=== PATIENT | male | born 1940 | race Caucasian/White ===

== ENCOUNTER 2016-09-18 22:26 | Emergency (ER) | payer MEDICARE, OTHER ==
[~2016-09-18 22:26] MED LIST: RANI150T6 PO; VALS320T2 PO
[2016-09-18 23:36] LABS: BACTERIA,URINE 0 /HPF (0-FEW); BILIRUBIN,URINE NEG (NEG); CLARITY,URINE CLEAR; COLOR,URINE YELLOW; GLUCOSE,URINE NEG (NEG); NITRITE,URINE NEG (NEG); RBC,URINE OCC /HPF (0-2); SQUAMOUS EPITHELIAL CELL,UR FEW /LPF; UROBILINOGEN,URINE 0.2 mg/dL (0.2 mg/dL); WBC,URINE OCC /HPF (0-4)
[2016-09-19 00:15] VITALS: BP 120/64
[2016-09-19] MEDS ORDERED: TAMS0.4C2 PO (00:20)
--- NOTE | 2016-09-19 00:20 | PHYS DOC ---
Past History Past Medical History: GERD, Other Past Surgical History: Other Alcohol Use: Occasionally Drug Use: None Adult General Chief Complaint Chief Complaint: URINARY FREQUENCY HPI HPI Patient is a 76 year old male who presents with complaint of increased urinary frequency. Patient states that his symptoms started today. Patient states that he had been constipated and took a laxative which help move his bowels earlier today. Patient states since doing this he has had increased urge to urinate. Patient states that he only urinates a small amount of urine which he equates to us and a teaspoon each time he attempts to urinate. Patient denies any dysuria and denies any pelvic pain or bloating. Patient states that he was told in the past he had an enlarged prostate but has not been on any medications for urinary problems. Patient has no fever and denies any hematuria. Review of Systems Review of Systems Constitutional: Denies fever or chills [] Eyes: Denies change in visual acuity, redness, or eye pain [] HENT: Denies nasal congestion or sore throat [] Respiratory: Denies cough or shortness of breath [] Cardiovascular: No additional information not addressed in HPI [] GI: Denies abdominal pain, nausea, vomiting, bloody stools or diarrhea [] : Increased urinary frequency, denies dysuria or hematuria [] Musculoskeletal: Denies back pain or joint pain [] Integument: Denies rash or skin lesions [] Neurologic: Denies headache, focal weakness or sensory changes [] Allergies Allergies Allergies Coded Allergies Type Severity Reaction Last Updated Verified No Known Drug Allergies 05/15/15 No Physical Exam Physical Exam Constitutional: Well developed, well nourished, no acute distress, non-toxic appearance. [] HENT: Normocephalic, atraumatic, bilateral external ears normal, oropharynx moist, no oral exudates, nose normal. [] Eyes: PERRLA, EOMI, conjunctiva normal, no discharge. [] Neck: Normal range of motion, no tenderness, supple, no stridor. [] Cardiovascular:Heart rate regular rhythm, no murmur [] Lungs & Thorax: Bilateral breath sounds clear to auscultation [] Abdomen: Bowel sounds normal, soft, no tenderness, no masses, no pulsatile masses. [] Skin: Warm, dry, no erythema, no rash. [] Back: No tenderness, no CVA tenderness. [] Extremities: No tenderness, no cyanosis, no clubbing, ROM intact, no edema. [] Neurologic: Alert and oriented X 3, normal motor function, normal sensory function, no focal deficits noted. [] Current Patient Data Lab Results Laboratory Tests Test 09/18/16 22:41 Urine Collection Type Unknown Urine Color Yellow Urine Clarity Clear Urine pH 6.0 Urine Specific [place] 1.015 Urine Protein Neg (NEG-TRACE) Urine Glucose (UA) Neg mg/dL (NEG) Urine Ketones (Stick) Neg mg/dL (NEG) Urine Blood Trace (NEG) Urine Nitrite Neg (NEG) Urine Bilirubin Neg (NEG) Urine Urobilinogen Dipstick 0.2 mg/dL (0.2 mg/dL) Urine Leukocyte Esterase Neg (NEG) Urine RBC Occ /HPF (0-2) Urine WBC Occ /HPF (0-4) Urine Squamous Epithelial Cells Few /LPF Urine Bacteria 0 /HPF (0-FEW) EKG EKG Not performed [] Radiology/Procedures Radiology/Procedures Not performed [] Course & Med Decision Making Course & Med Decision Making Pertinent Labs and Imaging studies reviewed. (See chart for details) Patient's UA shows no evidence of significant hematuria or infection. Spoke with patient regarding treatment options including obtaining a postvoid residual by urinary catheterization. Patient states that he did not want this procedure performed. I suspect due to patient's symptoms that they may be due to partial obstruction from enlarged prostate. I stated that we could start the patient on empiric therapy with Flomax. Patient states he is not in any significant distress at this time and he would prefer to take oral medication over the next couple days to see if this helps improve his symptoms. I recommended that he follow-up with his primary doctor in the next 3 days which he agreed. Advised return emergency department for any worsening symptoms. Patient voiced understanding and in agreement with treatment plan. Dragon Disclaimer Dragon Disclaimer This chart was dictated in whole or in part using Voice Recognition software in a busy, high-work load, and often noisy Emergency Department environment. It may contain unintended and wholly unrecognized errors or omissions. Departure Departure: Impression: Primary Impression: Urinary frequency Disposition: HOME, SELF-CARE Condition: STABLE Referrals: SETH TATE (PCP) Patient Instructions: Urinary Frequency Additional Instructions: Follow-up with your primary doctor in 3 days for reevaluation. Return to the emergency department for any severe or worsening symptoms. Scripts Tamsulosin Hcl (TAMSULOSIN HCL) 0.4 Mg Cap.er.24h 1 CAP PO DAILY, #30 CAP 0 Refills Prov: JOSHUA MONDRAGON MD 09/19/16 JOSHUA MONDRAGON MD Sep 19, 2016 00:20
[2016-09-19] MEDS ORDERED: TAMSULOSIN 0.4 MG CAP.ER.24H. PO ONE (00:30)
== END 2016-09-19 00:25 | disposition home or self-care (01) ==
LOC: ER 22:26
DX: R35.0 Frequency of micturition (principal); K21.9 Gastro-esophageal reflux disease without esophagitis
CPT/HCPCS: 81001; 99283

== ENCOUNTER 2016-09-19 21:28 | Emergency (ER) | payer MEDICARE, OTHER ==
[~2016-09-19] VITALS: Ht 188 cm; Wt 100.1 kg
[~2016-09-19 21:28] MED LIST changes: +TAMS0.4C2 PO
[2016-09-19] MEDS ORDERED: IV NORMAL SALINE 1,000ML 1,000 ML IV ONE (22:00)
[2016-09-19] MEDS ORDERED: diazePAM 5 MG TABLET PO ONE (22:15)
[2016-09-19] MEDS ORDERED: KETOROLAC 15 MG/ML VIAL. IV ONE (22:15)
--- NOTE | 2016-09-19 22:31 | RAD ---
PQRS STATEMENT: One or more of the following in the visualized dose reduction techniques were utilized for this study: 1. Automatic exposure control, 2. Adjustment of the mA and/or kV according to patient size, 3. Use of iterative reconstruction technique CT ABDOMEN/PELVIS Indication:RT FLANK PAIN, HX ESOPHOGEAL CANCER, SURGERY DONE TO ESOPHAGUS Technique: Multiple contiguous axial images were obtained through the abdomen and pelvis. Coronal and sagittal reformations were created. Comparison: 11/03/2011 CT abdomen and pelvis Findings: There is bilateral hydroureteronephrosis. There is a moderately enlarged right renal pelvis. This is seen to a lesser degree on the left. There is no nephrolithiasis or ureteral calculus. The urinary bladder is distended. Perinephric stranding is noted bilaterally. Heart size normal. Coronary artery calcified calcifications are noted. There is a hiatal hernia. A small right pleural effusion is noted. There is atelectasis or scarring in the right lower lobe.Evaluation of the abdominal viscera is limited in the absence of IV contrast. The liver and spleen are normal in size. The gallbladder is nondistended. The pancreas and adrenal glands are unremarkable. There is no abdominopelvic ascites. Abdominal aorta is normal in caliber. .The bowel loops are normal in caliber. The appendix is normal.No destructive osseus lesions are identified. There is ectasia of the bilateral common iliac arteries measuring 2.1 cm on the left and 1.7 cm on the right. Impression: There is bilateral hydronephrosis and hydroureter. This may be due to reflux from the distended urinary bladder. There is no evidence for obstructing calculus. Coronary artery disease. Hiatal hernia. Small right pleural effusion. Ectasia of the bilateral iliac arteries. Electronically signed by: Tee Kan MD (09/19/2016 10:28 PM) [facility]
--- NOTE | 2016-09-19 22:50 | PHYS DOC ---
Past History Past Medical History: Pneumonia, Stroke Past Surgical History: Other Alcohol Use: None Drug Use: None Adult General Chief Complaint Chief Complaint: FLANK PAIN HPI HPI Patient is a 76-year-old male presenting to the emergency department for evaluation of continued lower abdominal pressure and now he has right flank pain. Today for not being able to urinate very well and was prescribed Flomax and he said he is urinating better today. Patient denies any fevers chills nausea vomiting or other systemic symptoms. He says that he is was been told that he has a large prostate but has never required a catheter in the past. Review of Systems Review of Systems Constitutional: Denies fever or chills [] Respiratory: Denies cough or shortness of breath [] Cardiovascular: No additional information not addressed in HPI [] GI: Denies abdominal pain, nausea, vomiting, bloody stools or diarrhea [] : Denies dysuria or hematuria [] Musculoskeletal: + R flank back pain. No joint pain [] Neurologic: Denies headache, focal weakness or sensory changes [] Current Medications Current Medications Current Medications Medications (Trade) Dose Ordered Sig/Theo Start Time Stop Time Status Last Admin Dose Admin Diazepam (Valium) 5 mg 1X ONCE 09/19/16 22:15 09/19/16 22:16 DC 09/19/16 22:45 5 MG Fentanyl Citrate (Fentanyl 2ml Vial) 50 mcg 1X ONCE 09/19/16 23:00 09/19/16 23:01 Ketorolac Tromethamine (Toradol) 15 mg 1X ONCE 09/19/16 22:15 09/19/16 22:16 DC 09/19/16 22:45 15 MG Sodium Chloride 1,000 ml @ 1,000 mls/hr 1X ONCE 09/19/16 22:00 09/19/16 22:59 09/19/16 22:45 1,000 MLS/HR Allergies Allergies Allergies Coded Allergies Type Severity Reaction Last Updated Verified No Known Drug Allergies 05/15/15 No Physical Exam Physical Exam Constitutional: Well developed, well nourished, no acute distress, non-toxic appearance. [] HENT: Normocephalic, atraumatic, bilateral external ears normal, oropharynx moist, no oral exudates, nose normal. [] Eyes: PERRLA, EOMI, conjunctiva normal, no discharge. [] Neck: Normal range of motion, no tenderness, supple, no stridor. [] Cardiovascular:Heart rate regular rhythm, no murmur [] Lungs & Thorax: Bilateral breath sounds clear to auscultation [] Abdomen: Bowel sounds normal, soft, no tenderness, no masses, no pulsatile masses. [] Skin: Warm, dry, no erythema, no rash. [] Back: No tenderness, no CVA tenderness. [] Extremities: No tenderness, no cyanosis, no clubbing, ROM intact, no edema. [] Neurologic: Alert and oriented X 3, normal motor function, normal sensory function, no focal deficits noted. [] Psychologic: Affect normal, judgement normal, mood normal. [] Current Patient Data Vital Signs Vital Signs Date Time Temp Pulse Resp B/P (MAP) Pulse Ox O2 Delivery O2 Flow Rate FiO2 09/19/16 21:40 97.8 88 20 99 Room Air EKG EKG [] Radiology/Procedures Radiology/Procedures PQRS STATEMENT: One or more of the following in the visualized dose reduction techniques were utilized for this study: 1. Automatic exposure control, 2. Adjustment of the mA and/or kV according to patient size, 3. Use of iterative reconstruction technique CT ABDOMEN/PELVIS Indication:RT FLANK PAIN, HX ESOPHOGEAL CANCER, SURGERY DONE TO ESOPHAGUS Technique: Multiple contiguous axial images were obtained through the abdomen and pelvis. Coronal and sagittal reformations were created. Comparison: 11/03/2011 CT abdomen and pelvis Findings: There is bilateral hydroureteronephrosis. There is a moderately enlarged right renal pelvis. This is seen to a lesser degree on the left. There is no nephrolithiasis or ureteral calculus. The urinary bladder is distended. Perinephric stranding is noted bilaterally. Heart size normal. Coronary artery calcified calcifications are noted. There is a hiatal hernia. A small right pleural effusion is noted. There is atelectasis or scarring in the right lower lobe.Evaluation of the abdominal viscera is limited in the absence of IV contrast. The liver and spleen are normal in size. The gallbladder is nondistended. The pancreas and adrenal glands are unremarkable. There is no abdominopelvic ascites. Abdominal aorta is normal in caliber. .The bowel loops are normal in caliber. The appendix is normal.No destructive osseus lesions are identified. There is ectasia of the bilateral common iliac arteries measuring 2.1 cm on the left and 1.7 cm on the right. Impression: There is bilateral hydronephrosis and hydroureter. This may be due to reflux from the distended urinary bladder. There is no evidence for obstructing calculus. Coronary artery disease. Hiatal hernia. Small right pleural effusion. Ectasia of the bilateral iliac arteries. Electronically signed by: Tee Kan MD (09/19/2016 10:28 PM) [facility] DICTATED AND SIGNED BY: TEE KAN MD DATE: 09/19/16 Course & Med Decision Making Course & Med Decision Making Patient has a very distended bladder in addition to bilateral hydronephrosis. He has obstructive uropathy and now has an elevated creatinine. Patient was explained the need for a Gonsalez catheter and he agreed. Patient will be started on antibiotics and told to continue his Flomax and follow with urologist in the next 2-3 days and come back to the ER sooner with any worsening pain fevers vomiting or other general concerns. Dragon Disclaimer Dragon Disclaimer This chart was dictated in whole or in part using Voice Recognition software in a busy, high-work load, and often noisy Emergency Department environment. It may contain unintended and wholly unrecognized errors or omissions. Departure Departure: Impression: Primary Impression: Uropathy, obstructive Additional Impressions: Hydronephrosis Renal insufficiency Disposition: 01 HOME, SELF-CARE Condition: GOOD Referrals: PAULA WALTERS MD Patient Instructions: Gonsalez Catheter Care, Adult Additional Instructions: DRINK PLENTY OF FLUIDS AND FOLLOW WITH THE UROLOGIST IN THE NEXT 2-3 DAYS. COME BACK TO THE ED SOONER WITH ANY NEW OR WORSENING SYMPTOMS. THANK YOU! Problem Qualifiers JULIETA CALVIN DO Sep 19, 2016 22:50
[2016-09-19 22:59] LABS: BASO % 1 % (0-3); EOS % 0 % (0-3); HEMATOCRIT 43.1 % (39.0-53.0); HEMOGLOBIN 14.7 g/dL (13.0-17.5); LYMPH # 0.4 x10^3/uL (1.0-4.8); LYMPH % 5 % (24-48); MEAN CORPUSCULAR HEMOGLOBIN 32 pg (25-35); MEAN CORPUSCULAR HGB CONC 34 g/dL (31-37); MEAN CORPUSCULAR VOLUME 95 fL (79-100); MONO # 0.6 x10^3/uL (0.0-1.1); MONO % 9 % (0-9); NEUT % 85 % (31-73); PLATELET COUNT 179 x10^3/uL (140-400); RED BLOOD COUNT 4.54 x10^6/uL (4.30-5.70); RED CELL DISTRIBUTION WIDTH 14.2 % (11.5-14.5); WHITE BLOOD COUNT 7.1 x10^3/uL (4.0-11.0)
[2016-09-19] MEDS ORDERED: fentaNYL PF 100 MCG/2 ML VIAL IV ONE (23:00)
[2016-09-19 23:10] LABS: ALBUMIN 3.7 g/dL (3.4-5.0); ALBUMIN/GLOBULIN RATIO 0.9 (1.0-1.7); CALCIUM 9.1 mg/dL (8.5-10.1); CREATININE 1.4 mg/dL (0.7-1.3); GFR 49.1; MAGNESIUM 2.2 mg/dL (1.8-2.4); POTASSIUM 3.6 mmol/L (3.5-5.1); TOTAL BILIRUBIN 1.4 mg/dL (0.2-1.0); TOTAL PROTEIN 7.7 g/dL (6.4-8.2)
[2016-09-19 23:21] LABS: BACTERIA,URINE 0 /HPF (0-FEW); BILIRUBIN,URINE NEG (NEG); CLARITY,URINE HAZY; COLOR,URINE YELLOW; GLUCOSE,URINE NEG (NEG); NITRITE,URINE NEG (NEG); SQUAMOUS EPITHELIAL CELL,UR FEW /LPF; UROBILINOGEN,URINE 0.2 mg/dL (0.2 mg/dL)
[2016-09-19] MEDS ORDERED: LIDOCAINE 2% TOPICAL JELLY 30GM TUBE. TP ONE (23:33)
[2016-09-20] MEDS ORDERED: IV NORMAL SALINE 50ML 50 ML ONE (00:04)
[2016-09-20] MEDS ORDERED: cefTRIAXone SODIUM 1 GM VIAL IV ONE (00:04)
[2016-09-20 00:15] VITALS: BP 148/82
[2016-09-20] MEDS ORDERED: LIDOCAINE 2% TOPICAL JELLY 30GM TUBE. TP ONE (04:00)
== END 2016-09-20 00:28 | disposition home or self-care (01) ==
LOC: ER 21:28
DX: N13.9 Obstructive and reflux uropathy, unspecified (principal); N13.30 Unspecified hydronephrosis; N28.9 Disorder of kidney and ureter, unspecified; Z86.73 Personal history of transient ischemic attack (TIA), and cerebral infarction without residual deficits
CPT/HCPCS: 36415; 51702; 74176; 80053; 81001; 82550; 83690; 83735; 85027; 85610; 85730; 96361; 96365; 96375; 99285; J0696; J1885; J7030

== ENCOUNTER 2016-09-22 15:01 | Emergency (ER) | payer MEDICARE, OTHER ==
[~2016-09-22] VITALS: Ht 193 cm; Wt 77.6 kg
--- NOTE | 2016-09-22 16:06 | PHYS DOC ---
Past History Past Medical History: Pneumonia, Stroke Past Surgical History: Other Alcohol Use: None Drug Use: None Adult General Chief Complaint Chief Complaint: URINE CATHETER PROBLEM HPI HPI Patient is a 76 year old male who presents his Gonsalez catheter removed. The patient was seen twice earlier this week in the emergency department after complaining of urinary frequency. The patient was suspected of urinary retention at his first visit but elected to be treated with Flomax therapy. Patient returned to the emergency department the next day due to worsening symptoms and was diagnosed with urinary retention. Patient had a Gonsalez catheter placed while in the emergency department and was referred to urology for follow- up. Patient states that he is unable to be seen by urology until the end of this month. Patient would like to have his Gonsalez catheter removed at this time. Patient denies any severe pain symptoms, fevers, nausea, or vomiting. Review of Systems Review of Systems Constitutional: Denies fever or chills [] Eyes: Denies change in visual acuity, redness, or eye pain [] HENT: Denies nasal congestion or sore throat [] Respiratory: Denies cough or shortness of breath [] Cardiovascular: Denies chest pain or edema [] GI: Denies abdominal pain, nausea, vomiting, bloody stools or diarrhea [] : Denies dysuria or hematuria [] Musculoskeletal: Denies back pain or joint pain [] Integument: Denies rash or skin lesions [] Neurologic: Denies headache, focal weakness or sensory changes [] Allergies Allergies Allergies Coded Allergies Type Severity Reaction Last Updated Verified No Known Drug Allergies 05/15/15 No Physical Exam Physical Exam Constitutional: Well developed, well nourished, no acute distress, non-toxic appearance. [] HENT: Normocephalic, atraumatic, bilateral external ears normal, oropharynx moist, no oral exudates, nose normal. [] Eyes: PERRLA, EOMI, conjunctiva normal, no discharge. [] Neck: Normal range of motion, no tenderness, supple, no stridor. [] Cardiovascular:Heart rate regular rhythm, no murmur [] Lungs & Thorax: Bilateral breath sounds clear to auscultation [] Abdomen: Bowel sounds normal, soft, no tenderness, no masses, no pulsatile masses. [] Skin: Warm, dry, no erythema, no rash. [] Back: No tenderness, no CVA tenderness. [] Extremities: No tenderness, no cyanosis, no clubbing, ROM intact, no edema. [] Neurologic: Alert and oriented X 3, normal motor function, normal sensory function, no focal deficits noted. [] Psychologic: Affect normal, judgement normal, mood normal. [] Current Patient Data Vital Signs Vital signs reviewed and are stable Lab Results None performed EKG EKG Not performed [] Radiology/Procedures Radiology/Procedures Not performed [] Course & Med Decision Making Course & Med Decision Making Pertinent Labs and Imaging studies reviewed. (See chart for details) Patient's Gonsalez catheter was removed in the emergency department per his request. The patient is in no acute distress at this time. Advised patient to continue on Flomax therapy until seen by urology. Advised return emergency department for any worsening symptoms. Patient voiced understanding and in agreement with treatment plan. Dragon Disclaimer Dragon Disclaimer This chart was dictated in whole or in part using Voice Recognition software in a busy, high-work load, and often noisy Emergency Department environment. It may contain unintended and wholly unrecognized errors or omissions. Departure Departure: Impression: Primary Impression: Encounter for Gonsalez catheter removal Disposition: HOME, SELF-CARE Condition: IMPROVED Referrals: SETH TATE (PCP) Patient Instructions: Urinary Retention, Acute, Male Additional Instructions: Follow-up with your urologist at the next available appointment. Continue on Lotemax daily. Return to the emergency department for any worsening symptoms. JOSHUA MONDRAGON MD Sep 22, 2016 16:05
[2016-09-22 16:10] VITALS: BP 121/75
== END 2016-09-22 16:15 | disposition home or self-care (01) ==
LOC: ER 15:01
DX: Z46.89 Encounter for fitting and adjustment of other specified devices (principal); R35.0 Frequency of micturition; R33.9 Retention of urine, unspecified; Z86.73 Personal history of transient ischemic attack (TIA), and cerebral infarction without residual deficits
CPT/HCPCS: 99281

== ENCOUNTER 2016-09-23 10:36 | Emergency (ER) | payer MEDICARE, OTHER ==
[~2016-09-23] VITALS: Ht 193 cm; Wt 80.7 kg
[2016-09-23 10:38] VITALS: BP 151/99
--- NOTE | 2016-09-23 10:38 | ED.ADGEN ---
Past History Past Medical History: Pneumonia, Stroke Past Surgical History: Other Alcohol Use: None Drug Use: None Adult General Chief Complaint Chief Complaint Decreased urine output [facility] HPI Patient is a 76 year old male who presents with decreased urine output overnight with abdominal distention. He was in about 3 days ago and had a Gonsalez catheter placed secondary to urinary retention and then yesterday around 3 PM had her remove. He states he hasn't urinated since 3 PM last night. He presents this morning with suprapubic discomfort. Gonsalez catheter was placed in greater than 500 ML's of urine was obtained. Urine was clear there was no discoloration. He states he only urinates about 300 mL every 3 hours and has done this for about the last 20 years. He states he's had an enlarged prostate before. He denies any different medications, fevers chills nausea or vomiting and doesn't know why all of a sudden he had urinary retention. He states he called several different urologist and has an appointment in [facility] on October 08. Currently after the Gonsalez catheter was placed he denies any abdominal pain and states he feels back to normal. Review of Systems Review of Systems Constitutional: Denies fever or chills [] Eyes: Denies change in visual acuity, redness, or eye pain [] HENT: Denies nasal congestion or sore throat [] Respiratory: Denies cough or shortness of breath [] Cardiovascular: No additional information not addressed in [facility] [] GI: Denies abdominal pain, nausea, vomiting, bloody stools or diarrhea [] : Denies dysuria or hematuria [] Musculoskeletal: Denies back pain or joint pain [] Integument: Denies rash or skin lesions [] Neurologic: Denies headache, focal weakness or sensory changes [] Endocrine: Denies polyuria or polydipsia [] Allergies Allergies Allergies Coded Allergies Type Severity Reaction Last Updated Verified No Known Drug Allergies 05/15/15 No Physical Exam Physical Exam Constitutional: Well developed, well nourished, no acute distress, non-toxic appearance. [] HENT: Normocephalic, atraumatic, bilateral external ears normal, oropharynx moist, no oral exudates, nose normal. [] Eyes: PERRLA, EOMI, conjunctiva normal, no discharge. [] Neck: Normal range of motion, no tenderness, supple, no stridor. [] Cardiovascular:Heart rate regular rhythm, no murmur [] Lungs & Thorax: Bilateral breath sounds clear to auscultation [] Abdomen: Bowel sounds normal, soft, no tenderness, no masses, no pulsatile masses. [] Skin: Warm, dry, no erythema, no rash. [] Back: No tenderness, no CVA tenderness. [] Extremities: No tenderness, no cyanosis, no clubbing, ROM intact, no edema. [] Neurologic: Alert and oriented X 3, normal motor function, normal sensory function, no focal deficits noted. [] Psychologic: Affect normal, judgement normal, mood normal. [] Current Patient Data Vital Signs Vital Signs Date Time Temp Pulse Resp B/P (MAP) Pulse Ox O2 Delivery O2 Flow Rate FiO2 09/23/16 10:38 97.7 110 22 99 Room Air EKG EKG [] Radiology/Procedures Radiology/Procedures [] Course & Med Decision Making Course & Med Decision Making Pertinent Labs and Imaging studies reviewed. (See chart for details) Labs were just completed the other day so do not feel there is need to repeat labs today since his symptoms just occurred overnight and after the Gonsalez catheter was placed all the symptoms resolved. He has a urologist follow-up appointment scheduled. He was discharged with a leg bag. He was also given a CD of his CT abdomen and pelvis was completed 3 days ago. Return precautions given he and his 's agreeable to the plan and being discharged in stable condition at this time. Final Impression Final Impression Urinary retention Problems: Dragon Disclaimer Dragon Disclaimer This electronic medical record was generated, in whole or in part, using a voice recognition dictation system. GATITO LUGO MD Sep 23, 2016 10:38
== END 2016-09-23 11:33 | disposition home or self-care (01) ==
LOC: ER 10:36
DX: R33.9 Retention of urine, unspecified (principal); Z86.73 Personal history of transient ischemic attack (TIA), and cerebral infarction without residual deficits
CPT/HCPCS: 51702; 99284-25

== ENCOUNTER 2016-09-29 17:19 | Emergency (ER) | payer MEDICARE, OTHER ==
[~2016-09-29] VITALS: Ht 193 cm; Wt 80.7 kg
[2016-09-29 17:51] VITALS: BP 121/49
[2016-09-29] MEDS ORDERED: LIDOCAINE 2% JELLY 10ML IN APPLICATOR. MM ONE (18:00)
--- NOTE | 2016-09-29 18:07 | PHYS DOC ---
Past History Past Medical History: Pneumonia, Stroke Additional Past Medical Histor: Urinary retention Past Surgical History: Other Alcohol Use: None Drug Use: None Social History Narrative: Adult General Chief Complaint Chief Complaint: URINARY RETENTION HPI HPI Patient is a 76year old male who presents with urinary retention. He was originally seen in the emergency department on September 23 for urinary retention and had a catheter placed. He saw his urologist today and had the Gonsalez catheter removed. He subsequently has not been able to urinate for at least 7 hours. He states he started to develop some suprapubic abdominal pain. He did take an antibiotic and finished 3 days ago. No blood in his urine. He denies fever. No nausea vomiting. No other complaints. Review of Systems Review of Systems Constitutional: Denies fever or chills GI: suprapubic abdominal pain, Denies nausea, vomiting, bloody stools or diarrhea : See HPI. Denies dysuria or hematuria Current Medications Current Medications Current Medications Medications (Trade) Dose Ordered Sig/Theo Start Time Stop Time Status Last Admin Dose Admin Lidocaine HCl (Uro-Jet) 1 eri 1X ONCE 09/29/16 18:00 09/29/16 18:01 DC Allergies Allergies Allergies Coded Allergies Type Severity Reaction Last Updated Verified No Known Drug Allergies 05/15/15 No Physical Exam Physical Exam Constitutional: Well developed, well nourished, no acute distress, non-toxic appearance. HENT: Normocephalic, atraumatic, bilateral external ears normal, oropharynx moist, no oral exudates, nose normal. Eyes: PERRLA, EOMI, conjunctiva normal, no discharge. Neck: Normal range of motion, no tenderness, supple, no stridor. Cardiovascular:Heart rate regular rhythm, no murmur Lungs & Thorax: Bilateral breath sounds clear to auscultation Abdomen: Bowel sounds normal, soft, some suprapubic tenderness, no masses, no pulsatile masses. : no blood at the meatus. No testicular pain or swelling. Skin: Warm, dry, no erythema, no rash. Back: No tenderness, no CVA tenderness. Extremities: No tenderness, no cyanosis, no clubbing, ROM intact, no edema. Neurologic: Alert and oriented X 3, normal motor function, normal sensory function, no focal deficits noted. Current Patient Data Vital Signs sat 99%; T 98.1; BP 121/49; P 88 Lab Results Istat results: Na 137; K 4.0; Cl; 99; CO2 28; BUN 27; Cr 1.1; Glucose 102; H/H= 12.9/38 Course & Med Decision Making Course & Med Decision Making Pertinent Labs and Imaging studies reviewed. (See chart for details) renal function normal. Urine sent and pending. Placed on Macrobid. Home with leg bag. 175 cc out but patient insistent on having another catheter for the weekend. Dragon Disclaimer Dragon Disclaimer This chart was dictated in whole or in part using Voice Recognition software in a busy, high-work load, and often noisy Emergency Department environment. It may contain unintended and wholly unrecognized errors or omissions. Departure Departure: Impression: Primary Impression: Urinary retention Disposition: HOME, SELF-CARE Condition: GOOD Referrals: SETH TATE (PCP) Patient Instructions: Gonsalez Catheter Care, Adult, Urinary Retention, Acute, Male Additional Instructions: A urinalysis was sent for evaluation and possible culture. Follow up with your urologist again on the retention and the urine culture. Scripts Nitrofurantoin Monohyd/M-Cryst (MACROBID 100 MG CAPSULE) 100 Mg Capsule 1 CAP PO BID, #10 CAP Prov: NAKUL BRIGGS MD 09/29/16 NAKUL BRIGGS MD Sep 29, 2016 18:07
[2016-09-29] MEDS ORDERED: NITR100C62 PO (18:08)
[2016-09-29 18:32] LABS: HEMOGLOBIN ISTAT 12.9 gm/dL
[2016-09-29 18:54] LABS: BACTERIA,URINE 0 /HPF (0-FEW); BILIRUBIN,URINE NEG (NEG); CLARITY,URINE CLEAR; COLOR,URINE YELLOW; GLUCOSE,URINE NEG (NEG); NITRITE,URINE NEG (NEG); SQUAMOUS EPITHELIAL CELL,UR FEW /LPF; UROBILINOGEN,URINE 0.2 mg/dL (0.2 mg/dL)
[2016-09-29 18:57] LABS: HYALINE CASTS, URINE FEW /HPF
== END 2016-09-29 18:37 | disposition home or self-care (01) ==
LOC: ER 17:19
DX: R33.9 Retention of urine, unspecified (principal); R10.30 Lower abdominal pain, unspecified; Z86.73 Personal history of transient ischemic attack (TIA), and cerebral infarction without residual deficits
CPT/HCPCS: 51702; 80047; 81001; P9612; 99284-25

== ENCOUNTER 2016-10-26 01:32 | Emergency (ER) | payer MEDICARE, OTHER ==
[~2016-10-26] VITALS: Ht 193 cm; Wt 80.7 kg
[2016-10-26 01:32] VITALS: BP 147/89
[~2016-10-26 01:32] MED LIST changes: +NITR100C62 PO
--- NOTE | 2016-10-26 02:15 | PHYS DOC ---
Past History Past Medical History: Pneumonia, Stroke Additional Past Medical Histor: Urinary retention Past Surgical History: Other Alcohol Use: Rarely Drug Use: None Adult General Chief Complaint Chief Complaint: URINARY RETENTION HPI HPI Patient is a 76-year-old gentleman who presents here today with symptoms consistent with urinary retention. Patient reports he had a procedure today related laser ablation of his prostate. Patient was urinating well postop and sono Gonsalez catheter was sent home with him. Patient reports that he was warned that the swelling might cause urinary retention. This evening he reports he started having dribbling so he came to the ER secondary to hemorrhoids and this was most likely consistent with urinary retention. Patient has no other symptoms at this time. Patient's physical exam is significant for tenderness to palpation in the suprapubic region. After Gonsalez catheter placement patient was a sudden dramatic. Procedure: Gonsalez catheter was inserted by nurse. Patient reports incident relief after insertion of the catheter. Approximately 250 mL was obtained after insertion. Assessment and plan 76-year-old gentleman with urinary retention most likely secondary to edema postop. Gonsalez catheter has been placed and patient is to follow-up with his urologist on Sunday as scheduled. Review of Systems Review of Systems Constitutional: Denies fever or chills [] Eyes: Denies change in visual acuity, redness, or eye pain [] HENT: Denies nasal congestion or sore throat [] All other review systems are negative except as documented in the history of present illness. Allergies Allergies Allergies Coded Allergies Type Severity Reaction Last Updated Verified No Known Drug Allergies 05/15/15 No Physical Exam Physical Exam Constitutional: Well developed, well nourished, no acute distress, non-toxic appearance. HENT: Normocephalic, atraumatic, Eyes: no discharge. Neck: no stridor. Cardiovascular:Heart rate regular rhythm Lungs & Thorax: Bilateral breath sounds clear to auscultation Abdomen: Bowel sounds normal, soft, no tenderness, Skin: Warm, dry, no erythema, no rash. Back: No tenderness, no CVA tenderness. Extremities: No tenderness, no cyanosis, Neurologic: Alert and oriented X 3, Psychologic: Affect normal Current Patient Data Vital Signs Vital Signs Date Time Temp Pulse Resp B/P (MAP) Pulse Ox O2 Delivery O2 Flow Rate FiO2 10/26/16 01:32 97.5 74 20 96 Room Air EKG EKG [] Radiology/Procedures Radiology/Procedures [] Course & Med Decision Making Course & Med Decision Making Pertinent Labs and Imaging studies reviewed. (See chart for details) [] Dragon Disclaimer Dragon Disclaimer This chart was dictated in whole or in part using Voice Recognition software in a busy, high-work load, and often noisy Emergency Department environment. It may contain unintended and wholly unrecognized errors or omissions. Departure Departure: Impression: Primary Impression: Urinary retention Disposition: 01 HOME, SELF-CARE Condition: STABLE Referrals: YASSINE THOMAS MD (PCP) Patient Instructions: Gonsalez Catheter Care, Adult Additional Instructions: Please follow up as scheduled with your urologist on Sunday SAAD WRIGHT MD Oct 26, 2016 02:15
== END 2016-10-26 02:20 | disposition home or self-care (01) ==
LOC: ER 01:32
DX: R33.9 Retention of urine, unspecified (principal); Z86.73 Personal history of transient ischemic attack (TIA), and cerebral infarction without residual deficits
CPT/HCPCS: 51702; 99284-25

== ENCOUNTER 2016-11-02 10:48 | Emergency (ER) | payer MEDICARE, OTHER ==
[~2016-11-02] VITALS: Ht 193 cm; Wt 80.7 kg
[2016-11-02 11:04] VITALS: BP 159/87
--- NOTE | 2016-11-02 11:32 | ED.ADGEN ---
Past History Past Medical History: Pneumonia, Stroke Additional Past Medical Histor: Urinary retention Past Surgical History: Other Alcohol Use: Rarely Drug Use: None Adult General HPI HPI Patient is a 76 year old man, history of esophageal cancer status post full treatment, and urinary retention which had a Gonsalez catheter placed on 26 October. Patient had catheter placed in the emergency department, patient had a prostate ablation performed and had voided after leaving the hospital previously was being seen at [facility] on the [address], but then experienced retention later that night. Patient states that the Gonsalez catheter isn't functioning without issue, he states that he saw his urologist, Dr. Duron, and was told to come to the emergency department for his catheter be removed for a voiding trial prior to being seen tomorrow morning in the urology office. Patient denies any abdominal pain, flank pain, pain with urination, nausea, vomiting, fevers, chills or other concerns. He is not taking any antibiotics currently, or any other medications on a daily basis. Review of Systems Review of Systems Constitutional: Denies fever or chills [] Eyes: Denies change in visual acuity, redness, or eye pain [] HENT: Denies nasal congestion or sore throat [] Respiratory: Denies cough or shortness of breath [] Cardiovascular: No additional information not addressed in HPI [] GI: Denies abdominal pain, nausea, vomiting, bloody stools or diarrhea [] : Denies dysuria or hematuria [] Gonsalez catheter in place. Musculoskeletal: Denies back pain or joint pain [] Integument: Denies rash or skin lesions [] Neurologic: Denies headache, focal weakness or sensory changes [] Endocrine: Denies polyuria or polydipsia [] Allergies Allergies Allergies Coded Allergies Type Severity Reaction Last Updated Verified No Known Drug Allergies 05/15/15 No Physical Exam Physical Exam Constitutional: Well developed, well nourished, no acute distress, non-toxic appearance. [] HENT: Normocephalic, atraumatic, bilateral external ears normal, oropharynx moist, no oral exudates, nose normal. [] Eyes: PERRLA, EOMI, conjunctiva normal, no discharge. [] Neck: Normal range of motion, no tenderness, supple, no stridor. [] Cardiovascular:Heart rate regular rhythm, no murmur, S1, S2, no rubs or gallops. [] Lungs & Thorax: Bilateral breath sounds clear to auscultation, no wheezing, rhonchi, rales. No chest or crepitus or tenderness. [] Abdomen: Bowel sounds normal, soft, no tenderness, no rebound, rigidity, no guarding, no masses, no pulsatile masses. [] Skin: Warm, dry, no erythema, no rash. [] Back: No tenderness, no CVA tenderness. [] Extremities: No tenderness, no cyanosis, no clubbing, ROM intact, no edema. Negative Homans sign. [] Neurologic: Alert and oriented X 3, normal motor function, normal sensory function, no focal deficits noted. [] Psychologic: Affect normal, judgement normal, mood normal. [] Current Patient Data Vital Signs Vital Signs Date Time Temp Pulse Resp B/P (MAP) Pulse Ox O2 Delivery O2 Flow Rate FiO2 11/02/16 11:04 97.6 95 20 98 Room Air EKG EKG Not indicated. [] Radiology/Procedures Radiology/Procedures Not indicated. [] Course & Med Decision Making Course & Med Decision Making Pertinent Labs and Imaging studies reviewed. (See chart for details) Patient states that he was told to follow-up in the ED, as it is about a [address] to his doctor's office. Discussed with patient removal the Gonsalez catheter in the ED, as he is having no symptoms at this time, to follow-up with his urologist tomorrow, and to return anytime the ED if concerning symptoms develop. Patient voiced understanding and agreement, states that he would prefer to go home now, will perform a voiding trial in his own home, return for concerning symptoms or difficulties as discussed. No indication for additional evaluation or testing at this time, patient had catheter removed without issue, was discharged home in stable condition with plan and precautions as stated. Final Impression Final Impression [] Problems: Dragon Disclaimer Dragon Disclaimer This electronic medical record was generated, in whole or in part, using a voice recognition dictation system. Departure: Impression: Primary Impression: Encounter for Gonsalez catheter removal Disposition: HOME, SELF-CARE Condition: IMPROVED YASHIRA JAMIL DO Nov 02, 2016 11:32
== END 2016-11-02 11:18 | disposition home or self-care (01) ==
LOC: ER 10:48
DX: Z46.6 Encounter for fitting and adjustment of urinary device (principal); Z86.73 Personal history of transient ischemic attack (TIA), and cerebral infarction without residual deficits
CPT/HCPCS: 99281

== ENCOUNTER 2016-12-03 21:13 | Emergency (ER) | payer MEDICARE, OTHER ==
[~2016-12-03] VITALS: Ht 193 cm; Wt 80.7 kg
[2016-12-03 21:39] LABS: BASO % 0 % (0-3); EOS % 0 % (0-3); HEMATOCRIT 41.3 % (39.0-53.0); HEMOGLOBIN 14.1 g/dL (13.0-17.5); LYMPH # 0.4 x10^3/uL (1.0-4.8); LYMPH % 7 % (24-48); MEAN CORPUSCULAR HEMOGLOBIN 33 pg (25-35); MEAN CORPUSCULAR HGB CONC 34 g/dL (31-37); MEAN CORPUSCULAR VOLUME 96 fL (79-100); MONO # 0.1 x10^3/uL (0.0-1.1); MONO % 1 % (0-9); NEUT # 5.8 x10^3uL (1.8-7.7); NEUT % 92 % (31-73); PLATELET COUNT 187 x10^3/uL (140-400); RED BLOOD COUNT 4.31 x10^6/uL (4.30-5.70); RED CELL DISTRIBUTION WIDTH 14.3 % (11.5-14.5); WHITE BLOOD COUNT 6.4 x10^3/uL (4.0-11.0)
[2016-12-03 21:58] LABS: ALBUMIN 3.4 g/dL (3.4-5.0); CALCIUM 8.9 mg/dL (8.5-10.1); CREATININE 1.9 mg/dL (0.7-1.3); DIRECT BILIRUBIN 0.4 mg/dL (0.0-0.2); GFR 34.5; POTASSIUM 4.4 mmol/L (3.5-5.1); TOTAL BILIRUBIN 1.4 mg/dL (0.2-1.0); TOTAL PROTEIN 7.4 g/dL (6.4-8.2)
--- NOTE | 2016-12-03 22:00 | RAD ---
CT HEAD WO CONTRAST dated 12/03/2016 9:39 PM Indication: Generalized weakness, tremors shaking. History of prior right-sided CVA. Comparison: No comparison is available. Technique: Contiguous axial imaging the head was performed from skull base to vertex. No contrast administered. One or more of the following individualized dose reduction techniques were utilized for this examination: 1. Automated exposure control 2. Adjustment of the mA and/or kV according to patient size 3. Use of iterative reconstruction technique Findings: Ventricles and sulci are mildly prominent for age. No midline shift or mass effect. Brain parenchyma is of normal attenuation. No hemorrhage or extra-axial collection. Posterior fossa and brainstem unremarkable. Visualized paranasal sinuses and mastoid air cells are clear. No apparent calvarial abnormality. IMPRESSION: 1. No evidence of acute intracranial hemorrhage or mass. 2. Mild atrophy for age. Electronically signed by: Agustín Mario MD (12/03/2016 9:56 PM) [facility]
[2016-12-03] MEDS ORDERED: IV NORMAL SALINE 500ML 1,000 ML ONE (22:23)
[2016-12-03] MEDS ORDERED: IV NORMAL SALINE 1,000ML 1,000 ML IV ONE (22:30)
[2016-12-03 22:57] LABS: BACTERIA,URINE FEW /HPF (0-FEW); BILIRUBIN,URINE NEG (NEG); CLARITY,URINE HAZY; COLOR,URINE YELLOW; GLUCOSE,URINE NEG (NEG); NITRITE,URINE POS (NEG); UROBILINOGEN,URINE 0.2 mg/dL (0.2 mg/dL); WBC,URINE TNTC /HPF (0-4)
[2016-12-03] MEDS ORDERED: CONTRAST GIVEN MC PRN (23:00)
[2016-12-03] MEDS ORDERED: IOHEXOL 300 MG/ML 75 ML VIAL. IV ONE (23:00)
[2016-12-04] MEDS ORDERED: IV NORMAL SALINE 500ML 500 ML IV ONE
[2016-12-04] MEDS ORDERED: 0.9 % SODIUM CHLORIDE 10 ML DISP.SYRIN. IV PRN (00:15)
[2016-12-04] MEDS ORDERED: PIP/TAZO PER PHARMACY MC PRN (00:15)
--- NOTE | 2016-12-04 00:27 | RAD ---
INDICATION: EPIGASTRIC PAIN, ELEVATED LACTIC ACID COMPARISON: September 19, 2016 TECHNIQUE: Axial CT images obtained through the abdomen and pelvis with intravenous contrast with 3-dimensional reformats processed of vasculature.. One or more of the following individualized dose reduction techniques were utilized for this examination: 1. Automated exposure control; 2. Adjustment of the mA and/or kV according to patient size; 3. Use of iterative reconstruction technique. FINDINGS: Moderate right-sided pleural effusion with adjacent airspace consolidation. Trace left-sided pleural effusion. Postoperative changes to the stomach with possible pull through. Multifocal calcific atherosclerosis throughout the vasculature. Abdominal aorta is patent. Celiac artery patent. Calcified plaque throughout splenic artery. Superior mesenteric artery is patent proximally. Renal arteries are patent. Inferior mesenteric arteries patent proximally. Heterogeneity of the liver. No peripancreatic edema. Heterogeneity of spleen. Dilation of right greater than left extrarenal pelvis again seen. Bladder is partially distended. Free fluid within the pelvis. Prostate mildly prominent. Couple cystic lesion right kidney. Asymmetric enhancement of the kidneys with the right kidney enhancing more than the left. 8 mm exophytic high density lesion left kidney. There is some edema seen adjacent to the kidneys. No dilated loops of bowel to suggest obstruction. Degenerative changes spine. This causes multilevel central canal and neural foraminal stenosis. IMPRESSION: Multifocal calcified plaque is seen throughout the vasculature and is overall severe. No definite occlusion of the abdominal aorta or proximal aspect of the SMA or BOBO. Celiac artery is patent. Right-sided pleural effusion with adjacent opacification within the lung. This adjacent opacification could be secondary to associated atelectasis but infectious etiology is not excluded. Would also obtain a follow-up exam to ensure that this resolves to exclude neoplastic causes. Repeat demonstration of severe right and moderate left dilatation of extrarenal pelvis. There is some differential enhancement between the left and the right kidney with less enhancement on the left compared to the right. Would correlate with symptoms in the region to ensure that there is not a pathologic cause such as edema to the left kidney from infectious etiology. Other possible causes include left ureter stricture or lesion. There is some free fluid within the pelvis of unknown etiology but this is an abnormal finding in a male patient. Subcentimeter high density lesion left kidney. Differential considerations include proteinaceous cyst but a solid lesion is also within the differential. Follow-up exam could be obtained to ensure no growth. Electronically signed by: Ellis Niño MD (12/04/2016 12:23 AM) [facility]
[2016-12-04 00:49] LABS: BASO % 0 % (0-3); EOS % 0 % (0-3); HEMATOCRIT 31.3 % (39.0-53.0); LYMPH # 0.1 x10^3/uL (1.0-4.8); LYMPH % 1 % (24-48); MEAN CORPUSCULAR HEMOGLOBIN 33 pg (25-35); MEAN CORPUSCULAR HGB CONC 35 g/dL (31-37); MEAN CORPUSCULAR VOLUME 94 fL (79-100); MONO # 0.6 x10^3/uL (0.0-1.1); MONO % 6 % (0-9); NEUT # 9.2 x10^3uL (1.8-7.7); NEUT % 92 % (31-73); PLATELET COUNT 129 x10^3/uL (140-400); RED BLOOD COUNT 3.32 x10^6/uL (4.30-5.70); RED CELL DISTRIBUTION WIDTH 14.2 % (11.5-14.5)
[2016-12-04] MEDS ORDERED: PIPERACILLIN/TAZOBACTAM 3.375 GM in IV NORMAL SALINE 50ML 50 ML IV ONE (01:00)
[2016-12-04] MEDS ORDERED: IV NORMAL SALINE 1,000ML 1,000 ML IV SCH (01:00)
[2016-12-04] MEDS ORDERED: IV NORMAL SALINE 50ML 50 ML ONE (01:07)
[2016-12-04] MEDS ORDERED: PIPERACILLIN/TAZOBACTAM 3.375 GM VIAL IV ONE (01:07)
[2016-12-04] MEDS ORDERED: IV NORMAL SALINE 1,000ML 1,000 ML IV ONE (02:00)
[2016-12-04 03:45] VITALS: BP 140/74
--- NOTE | 2016-12-04 04:26 | PHYS DOC ---
Past History Past Medical History: Cancer, Heart Disease, [place], Pneumonia, Stroke Additional Past Medical Histor: Urinary retention Past Surgical History: Other Alcohol Use: Rarely Drug Use: None Adult General Chief Complaint Chief Complaint: MULTIPLE COMPLAINTS HPI HPI 76-year-old male presenting to the emergency department with epigastric abdominal pain that is sharp moderate intermittent nonradiating without alleviating factors. He also reports feeling chills and shaking at home. He reports having history of esophageal cancer status post resection. He also feels generally fatigued. He denies pain on urination. He denies chest pain shortness of breath. Review of systems is negative for objective fever recorded at home. Negative for headache neck stiffness confusion cyanosis or lethargy. All other review of systems is negative unless otherwise noted in history of present illness. ED course: 76-year-old male presenting with epigastric abdominal pain. Triage vital signs unremarkable. Afebrile with normal heart rate. Saturating well on room air. Pertinent physical exam findings showed a soft nontender abdomen without rebound tenderness or guarding. Blood work obtained along with chest x- ray and EKG. EKG obtained at 9:21 PM shows sinus rhythm with a regular rate. ST segments congruent. T-wave amplitude mildly enlarged until. Otherwise unremarkable. Repeat EKG obtained at 946 which does not show any acute evolving changes. CT angiography of the abdomen obtained and ordered. Lactate came back quite elevated. Physical exam shows a nontender abdomen. IV fluids administered. Antibiotics initiated. CT of the abdomen pelvis showed multiple findings. Right pleural effusion. Celiac artery patent. SMA patent. BOBO patent. Small amount of free fluid in the pelvis. Bilateral renal pelvis are enlarged. Chest x-ray reviewed by myself shows right pleural effusion. Cannot exclude infiltrate. Patient is not febrile here is not hypoxic. Clinical presentation is not strongly suggestive of pneumonia. Repeat lactate after fluid administration came down quite significantly. The patient normally gets care at the [facility] and desired to be transferred. Patient subsequently transferred to for further evaluation workup and care. Review of Systems Review of Systems SEE ABOVE Current Medications Current Medications Current Medications Medications (Trade) Dose Ordered Sig/Theo Start Time Stop Time Status Last Admin Dose Admin Info (Do NOT chart on this entry -- for MONITORING) 1 each PRN DAILY PRN 12/03/16 23:00 12/04/16 04:02 DC Iohexol (Omnipaque 300 Mg/ml) 75 ml 1X ONCE 12/03/16 23:00 12/03/16 23:01 DC 12/03/16 23:11 60 ML Piperacillin Sod/ Tazobactam Sod (Zosyn Per Pharmacy) 1 each PRN DAILY PRN 12/04/16 00:15 12/04/16 04:02 DC Piperacillin Sod/ Tazobactam Sod (Zosyn) 3.375 gm STK-MED ONCE 12/04/16 01:07 12/04/16 01:08 DC Piperacillin Sod/ Tazobactam Sod 3.375 gm/Sodium Chloride 50 ml @ 100 mls/hr 1X ONCE 12/04/16 01:00 12/04/16 01:29 DC 12/04/16 01:20 100 MLS/HR Sodium Chloride 1,000 ml @ 100 mls/hr 1X ONCE 12/04/16 02:00 12/04/16 04:02 DC 12/04/16 02:01 100 MLS/HR Sodium Chloride (Normal Saline Flush) 10 ml QSHIFT PRN 12/04/16 00:15 12/04/16 04:02 DC Allergies Allergies Allergies Coded Allergies Type Severity Reaction Last Updated Verified No Known Drug Allergies 05/15/15 No Physical Exam Physical Exam Constitutional: Well developed, well nourished, no acute distress, non-toxic appearance. [] HENT: Normocephalic, atraumatic, bilateral external ears normal, oropharynx moist, no oral exudates, nose normal. [] Eyes: PERRLA, EOMI, conjunctiva normal, no discharge. [] Neck: Normal range of motion, no tenderness, supple, no stridor. [] Cardiovascular:Heart rate regular rhythm, no murmur [] Lungs & Thorax: Bilateral breath sounds clear to auscultation [] Abdomen: Bowel sounds normal, soft, no tenderness, no masses, no pulsatile masses. [] Surgical scar noted. Skin: Warm, dry, no erythema, no rash. [] Back: No tenderness, no CVA tenderness. [] Extremities: No tenderness, no cyanosis, no clubbing, ROM intact, no edema. [] Neurologic: Alert and oriented X 3, normal motor function, normal sensory function, no focal deficits noted. [] Psychologic: Affect normal, judgement normal, mood normal. [] Current Patient Data Vital Signs Vital Signs Date Time Temp Pulse Resp B/P (MAP) Pulse Ox O2 Delivery O2 Flow Rate FiO2 12/04/16 03:45 88 22 140/74 (96) 96 Room Air 12/04/16 03:30 93.0 12/04/16 02:58 98.2 Lab Results Laboratory Tests Test 12/03/16 21:17 12/03/16 22:30 12/03/16 23:49 12/04/16 00:27 White Blood Count 6.4 x10^3/uL (4.0-11.0) 10.0 x10^3/uL (4.0-11.0) # Red Blood Count 4.31 x10^6/uL (4.30-5.70) 3.32 x10^6/uL (4.30-5.70) L Hemoglobin 14.1 g/dL (13.0-17.5) 11.0 g/dL (13.0-17.5) L Hematocrit 41.3 % (39.0-53.0) 31.3 % (39.0-53.0) L Mean Corpuscular Volume 96 fL (79-100) 94 fL (79-100) Mean Corpuscular Hemoglobin 33 pg (25-35) 33 pg (25-35) Mean Corpuscular Hemoglobin Concent 34 g/dL (31-37) 35 g/dL (31-37) Red Cell Distribution Width 14.3 % (11.5-14.5) 14.2 % (11.5-14.5) Platelet Count 187 x10^3/uL (140-400) 129 x10^3/uL (140-400) L Neutrophils (%) (Auto) 92 % (31-73) H 92 % (31-73) H Lymphocytes (%) (Auto) 7 % (24-48) L 1 % (24-48) L Monocytes (%) (Auto) 1 % (0-9) 6 % (0-9) Eosinophils (%) (Auto) 0 % (0-3) 0 % (0-3) Basophils (%) (Auto) 0 % (0-3) 0 % (0-3) Neutrophils # (Auto) 5.8 x10^3uL (1.8-7.7) 9.2 x10^3uL (1.8-7.7) H Lymphocytes # (Auto) 0.4 x10^3/uL (1.0-4.8) L 0.1 x10^3/uL (1.0-4.8) L Monocytes # (Auto) 0.1 x10^3/uL (0.0-1.1) 0.6 x10^3/uL (0.0-1.1) Eosinophils # (Auto) 0.0 x10^3/uL (0.0-0.7) 0.0 x10^3/uL (0.0-0.7) Basophils # (Auto) 0.0 x10^3/uL (0.0-0.2) 0.0 x10^3/uL (0.0-0.2) Sodium Level 140 mmol/L (136-145) Potassium Level 4.4 mmol/L (3.5-5.1) Chloride Level 103 mmol/L (98-107) Carbon Dioxide Level 23 mmol/L (21-32) Anion Gap 14 (6-14) Blood Urea Nitrogen 32 mg/dL (8-26) H Creatinine 1.9 mg/dL (0.7-1.3) H Estimated GFR (Cockcroft-Gault) 34.5 Glucose Level 126 mg/dL (70-99) H Lactic Acid Level 7.0 mmol/L (0.4-2.0) *H 1.0 mmol/L (0.4-2.0) Calcium Level 8.9 mg/dL (8.5-10.1) Total Bilirubin 1.4 mg/dL (0.2-1.0) H Direct Bilirubin 0.4 mg/dL (0.0-0.2) H Aspartate Amino Transferase (AST) 26 U/L (15-37) Alanine Aminotransferase (ALT) 25 U/L (16-63) Alkaline Phosphatase 116 U/L (46-116) Troponin I Quantitative 0.038 ng/mL (0-0.055) XP-Szt-I-Type Natriuretic Peptide 992 pg/mL (0-449) H Total Protein 7.4 g/dL (6.4-8.2) Albumin 3.4 g/dL (3.4-5.0) Lipase 147 U/L (73-393) Urine Collection Type U cath Urine Color Yellow Urine Clarity Hazy Urine pH 5.5 Urine Specific [place] 1.020 Urine Protein 100 mg/dl (NEG-TRACE) Urine Glucose (UA) Neg mg/dL (NEG) Urine Ketones (Stick) 15 mg/dL (NEG) Urine Blood Large (NEG) Urine Nitrite Pos (NEG) Urine Bilirubin Neg (NEG) Urine Urobilinogen Dipstick 0.2 mg/dL (0.2 mg/dL) Urine Leukocyte Esterase Mod (NEG) Urine RBC 11-20 /HPF (0-2) Urine WBC Tntc /HPF (0-4) Urine Squamous Epithelial Cells None /LPF Urine Bacteria Few /HPF (0-FEW) EKG EKG [] Radiology/Procedures Radiology/Procedures [] Course & Med Decision Making Course & Med Decision Making Pertinent Labs and Imaging studies reviewed. (See chart for details) [] Dragon Disclaimer Dragon Disclaimer This chart was dictated in whole or in part using Voice Recognition software in a busy, high-work load, and often noisy Emergency Department environment. It may contain unintended and wholly unrecognized errors or omissions. Departure Departure: Impression: Primary Impression: UTI (urinary tract infection) Additional Impressions: Lactic acidosis Severe sepsis Disposition: 02 XFER [facility] ([facility]. Dr. Noel accepting) Condition: STABLE Referrals: YASSINE THOMAS MD (PCP) Problem Qualifiers ALISIA GATES MD Dec 04, 2016 04:26
--- NOTE | 2016-12-04 06:22 | EKG ---
[address] [address] Test Date: 2016-12-03 Test Time: 21:21:55 Pat Name: MIGUEL MORALES Department: Room: Gender: M Science Instructor: : [id number] Requested By: ALISIA GATES Order Number: [id number] Reading MD: Measurements Intervals [place] Rate: 90 P: IA: QRS: -24 QRSD: 80 T: 34 QT: 308 QTc: 380 Interpretive Statements SINUS RHYTHM LEFTWARD AXIS NO SPECIFIC ECG ABNORMALITIES RI6.01 No previous ECG available for comparison
--- NOTE | 2016-12-04 06:28 | EKG ---
[address] [address] Test Date: 2016-12-03 Test Time: 21:46:56 Pat Name: MIGUEL MORALES Department: Room: Gender: M Computer Hardware Designer: JOHNSON : 1940 Requested By: ALISIA GATES Order Number: [id number] Reading MD: Measurements Intervals [place] Rate: 89 P: 29 OH: 214 QRS: -22 QRSD: 82 T: 32 QT: 316 QTc: 385 Interpretive Statements SINUS RHYTHM ATRIAL PREMATURE COMPLEX(ES) PROLONGED [place] INTERVAL LEFTWARD AXIS QRS(T) CONTOUR ABNORMALITY CONSIDER ANTEROLATERAL MYOCARDIAL DAMAGE ABNORMAL ECG RI6.01 No previous ECG available for comparison
--- NOTE | 2016-12-04 09:22 | RAD ---
Examination: Single frontal view of the chest History: History of weakness Comparison: 05/15/2015 Findings: The cardiomediastinal silhouette grossly appears unremarkable. Minimal right lung base airspace opacity likely atelectasis or infiltrate with trace right pleural effusion. Impression: 1. Minimal trace right pleural effusion. Mild right lung base airspace opacity likely atelectasis or infiltrate.
== END 2016-12-04 04:00 | disposition short-term general hospital (02) ==
LOC: ER 21:13
DX: A41.9 Sepsis, unspecified organism (principal); R65.20 Severe sepsis without septic shock; E87.2 Acidosis; N39.0 Urinary tract infection, site not specified; I25.2 Old myocardial infarction; J90 Pleural effusion, not elsewhere classified; Z86.73 Personal history of transient ischemic attack (TIA), and cerebral infarction without residual deficits
CPT/HCPCS: 36415; 70450; 71010; 74174; 80048; 80076; 81001; 83605; 83690; 83880; 84484; 85025; 87040; 87086; 87186; 87205; 93005; 96361; 96365; 96366; 99285; J2543; J7040; P9612; Q9967; J7030